=== PATIENT | female | born 1960 | race Caucasian/White ===

== ENCOUNTER 2018-06-30 18:47 | Emergency (ER) | payer OTHER ==
[2018-06-30] MEDS ORDERED: ONDANSETRON 4 MG TAB.RAPDIS PO ONE (20:26)
[2018-06-30] MEDS ORDERED: IPRATROPIUM/ALBUTEROL 0.5-2.5 MG/3 ML AMPUL NEB ONE (20:31)
--- NOTE | 2018-06-30 20:31 | ER Document Report ---
ED Medical Screen (RME) - General Chief Complaint: Diarrhea Stated Complaint: DIARRHEA, ABDOMINAL CRAMPS, UPSET STOMACH Time Seen by Provider: 06/30/18 20:18 Mode of Arrival: Ambulatory Information source: Patient Notes: 57-year-old female presents the emergency department with complaints of abdominal cramping and diarrhea for the last month. Patient states that she ate sushi on the and the diarrhea began. She's had continued diarrhea despite taking [id number] Imodium. She states that she is consuming Pedialyte to try to stay hydrated. Having associated nausea but denies vomiting. Denies fever, chills, dysuria, hematuria, increased urgency, increased frequency. Had her teeth pulled earlier this month and has been on antibiotics. I have greeted and performed a rapid initial assessment of this patient. A comprehensive ED assessment and evaluation of the patient, analysis of test results and completion of the medical decision making process will be conducted by additional ED providers. PHYSICAL EXAMINATION: GENERAL: Well-appearing, well-nourished and in no acute distress. HEAD: Atraumatic, normocephalic. EYES: Pupils equal round extraocular movements intact, conjunctiva are normal. ENT: Nares patent NECK: Normal range of motion LUNGS: Diffuse wheezing Musculoskeletal: Normal range of motion NEUROLOGICAL: Normal speech, normal gait. PSYCH: Normal mood, normal affect. SKIN: Warm, Dry, normal turgor, no rashes or lesions noted. TRAVEL OUTSIDE OF THE [place] IN LAST 30 DAYS: No - Related Data Allergies/Adverse Reactions: hydrocodone Allergy (Verified 06/30/18 20:13) Past Medical History - Social History Chew tobacco use (# tins/day): No Frequency of alcohol use: None Drug Abuse: None - Past Medical History Cardiac Medical History: Denies: Hx Coronary Artery Disease, Hx Heart Attack, Hx Hypertension Pulmonary Medical History: Reports: Hx Asthma, Hx COPD Denies: Hx Bronchitis, Hx Pneumonia Neurological Medical History: Denies: Hx Cerebrovascular Accident, Hx Seizures Renal/ Medical History: Denies: Hx Peritoneal Dialysis Musculoskeltal Medical History: Denies Hx Arthritis Traumatic Medical History: Reports: Hx Fractures - Multiple rib fractures. Right clavicle fracture. Past Surgical History: Reports: Hx Cholecystectomy, Hx Oral Surgery, Hx Thyroid Surgery. Denies: Hx Pacemaker - Immunizations Hx Diphtheria, Pertussis, Tetanus Vaccination: Yes - Jan 2010 Physical Exam - Vital signs Vitals: Temp Pulse Resp BP Pulse Ox 99.7 F 62 18 101/88 H 98 06/30/18 19:13 06/30/18 19:13 06/30/18 19:13 06/30/18 19:13 06/30/18 19:13 Course - Vital Signs Vital signs: Temp Pulse Resp BP Pulse Ox 99.7 F 62 18 101/88 H 98 06/30/18 19:13 06/30/18 19:13 06/30/18 19:13 06/30/18 19:13 06/30/18 19:13
[2018-06-30 21:06] LABS: ABSOLUTE BASOPHILS # (AUTO) 0.1 10^3/uL (0.0-0.2); ABSOLUTE EOSINOPHILS # (AUTO) 0.1 10^3/uL (0.0-0.6); ABSOLUTE LYMPHOCYTES (AUTO) 2.6 10^3/uL (0.5-4.7); ABSOLUTE MONOCYTES (AUTO) 0.6 10^3/uL (0.1-1.4); ABSOLUTE NEUT (AUTO) 5.8 10^3/uL (1.7-8.2); BASOPHILS % (AUTO) 0.9 % (0-2); EOSINOPHILS % (AUTO) 0.7 % (0-6); HEMATOCRIT 41.6 % (36.0-47.0); HEMOGLOBIN 13.7 g/dL (12.0-15.5); LYMPHOCYTES % (AUTO) 28.5 % (13-45); MEAN CORPUSCULAR HEMOGLOBIN 27.4 pg (27.0-33.4); MEAN CORPUSCULAR VOLUME 83 fl (80-97); MONOCYTES % (AUTO) 6.9 % (3-13); PLATELET COUNT 381 10^3/uL (150-450); RED CELL DISTRIBUTION WIDTH 13.2 % (11.5-14.0); TOTAL CELLS COUNTED % (AUTO) 100 %; WHITE BLOOD COUNT 9.2 10^3/uL (4.0-10.5)
[2018-06-30 21:11] LABS: APPEARANCE,URINE SLIGHTLY-CLOUDY; BILIRUBIN,URINE NEGATIVE (NEGATIVE); COLOR,URINE YELLOW; GLUCOSE, URINE NEGATIVE (NEGATIVE); KETONES,URINE TRACE mg/dL (NEGATIVE); LEUKOCYTE ESTERASE,URINE NEGATIVE (NEGATIVE); NITRITE,URINE NEGATIVE (NEGATIVE); PROTEIN,URINE NEGATIVE (NEGATIVE); URINE SPECIFIC GRAVITY 1.024
[2018-06-30 21:33] LABS: ALANINE AMINOTRANSFERASE 183 U/L (9-52); ALBUMIN 4.8 g/dL (3.5-5.0); ALKALINE PHOSPHATASE 77 U/L (38-126); ANION GAP 10 (5-19); ASPARTATE AMINO TRANSFERASE 145 U/L (14-36); BILIRUBIN,DIRECT 0.3 mg/dL (0.0-0.4); BILIRUBIN,TOTAL 0.6 mg/dL (0.2-1.3); BLOOD UREA NITROGEN 17 mg/dL (7-20); CALCIUM 9.8 mg/dL (8.4-10.2); CARBON DIOXIDE 30 mmol/L (22-30); CHLORIDE 102 mmol/L (98-107); GLUCOSE 104 mg/dL (75-110); POTASSIUM 3.8 mmol/L (3.6-5.0); SODIUM 141.7 mmol/L (137-145); TOTAL PROTEIN 7.5 g/dL (6.3-8.2)
--- NOTE | 2018-07-01 00:12 | ER Document Report ---
ED GI/ - General Chief Complaint: Diarrhea Stated Complaint: DIARRHEA, ABDOMINAL CRAMPS, UPSET STOMACH Time Seen by Provider: 06/30/18 20:18 Primary Care Provider: ASHLI SUNSHINE [Primary Care Provider] - Follow up as needed Mode of Arrival: Ambulatory Notes: 57-year-old female to emergency department chief complaint of diarrhea for 3 weeks. Patient states that she has been taking antibiotics for her teeth. Has been having diarrhea not getting better. Some intermittent abdominal cramping. Does not have a gallbladder. Does not drink. Does not do drugs. No IV drug abuse. No other risk factors other than the antibiotics. TRAVEL OUTSIDE OF THE [place] IN LAST 30 DAYS: No - HPI Patient complains to provider of: Diarrhea Onset: Last week Timing/Duration: Gradual, Constant Quality of pain: Achy Severity at maximum: Moderate - Related Data Allergies/Adverse Reactions: hydrocodone Allergy (Verified 06/30/18 20:13) Past Medical History - General Information source: Patient - Social History Smoking Status: Former Smoker Chew tobacco use (# tins/day): No Frequency of alcohol use: None Drug Abuse: None Lives with: Spouse/Significant other Family History: Reviewed & Not Pertinent Patient has suicidal ideation: No Patient has homicidal ideation: No - Past Medical History Cardiac Medical History: Denies: Hx Coronary Artery Disease, Hx Heart Attack, Hx Hypertension Pulmonary Medical History: Reports: Hx Asthma, Hx COPD Denies: Hx Bronchitis, Hx Pneumonia Neurological Medical History: Denies: Hx Cerebrovascular Accident, Hx Seizures Renal/ Medical History: Denies: Hx Peritoneal Dialysis Musculoskeletal Medical History: Denies Hx Arthritis Traumatic Medical History: Reports: Hx Fractures - Multiple rib fractures. Right clavicle fracture. Past Surgical History: Reports: Hx Cholecystectomy, Hx Oral Surgery, Hx Thyroid Surgery. Denies: Hx Pacemaker - Immunizations Hx Diphtheria, Pertussis, Tetanus Vaccination: Yes - Jan 2010 Review of Systems - Review of Systems Notes: Constitutional: denies: Chills, Diaphoresis, Fever, Malaise, Weakness EENT: denies: Eye discharge, Blurred vision, Tearing, Double vision, Nose congestion, Nose discharge, Throat swelling, Mouth pain Cardiovascular: denies: Palpitations, Heart racing, Orthopnea, Dyspnea, Chest pain Respiratory: denies: Cough, Hurts to breathe, Wheezing, Shortness of breath Gastrointestinal: Complaining of abdominal cramps, nausea, diarrhea. Genitourinary: denies: Burning, Dysuria, Discharge, Frequency, Flank pain, Hematuria Musculoskeletal: denies: Joint pain, Joint swelling, Muscle pain, Muscle stiffness, back pain Hematologic/Lymphatic: denies: Anemia, Easy bleeding, Easy bruising, Blood clots Neurological/Psychological: denies: Confusion, Dementia, Depression, Loss of consciousness Skin: No lesions, no masses, no skin breakdown, no abscesses Physical Exam - Vital signs Vitals: Temp Pulse Resp BP Pulse Ox 99.7 F 62 18 101/88 H 98 06/30/18 19:13 06/30/18 19:13 06/30/18 19:13 06/30/18 19:13 06/30/18 19:13 Interpretation: Normal - General General appearance: Appears well, Alert - HEENT Head: Normocephalic, Atraumatic Eyes: Normal Pupils: PERRL - Respiratory Respiratory status: No respiratory distress Chest status: Nontender Breath sounds: Normal Chest palpation: Normal - Cardiovascular Rhythm: Regular Heart sounds: Normal auscultation Murmur: No - Abdominal Inspection: Normal Distension: No distension Bowel sounds: Normal Tenderness: Nontender Organomegaly: No organomegaly - Back Back: Normal, Nontender - Extremities General upper extremity: Normal inspection, Nontender, Normal color, Normal ROM, Normal temperature General lower extremity: Normal inspection, Nontender, Normal color, Normal ROM, Normal temperature, Normal weight bearing. No: Ricki's sign - Neurological Neuro grossly intact: Yes Cognition: Normal Orientation: AAOx4 [place] Coma Scale Eye Opening: Spontaneous [place] Coma Scale Verbal: Oriented Michael Coma Scale Motor: Obeys Commands [place] Coma Scale Total: 15 Speech: Normal Motor strength normal: LUE, RUE, LLE, RLE Sensory: Normal - Psychological Associated symptoms: Normal affect, Normal mood - Skin Skin Temperature: Warm Skin Moisture: Dry Skin Color: Normal Course - Re-evaluation Re-evalutation: 07/01/18 01:43 Laboratory 06/30/18 06/30/18 06/30/18 20:45 20:45 20:45 WBC 9.2 RBC 5.00 Hgb 13.7 Hct 41.6 MCV 83 MCH 27.4 MCHC 33.0 RDW 13.2 Plt Count 381 Seg Neutrophils % 63.0 Lymphocytes % 28.5 Monocytes % 6.9 Eosinophils % 0.7 Basophils % 0.9 Absolute Neutrophils 5.8 Absolute Lymphocytes 2.6 Absolute Monocytes 0.6 Absolute Eosinophils 0.1 Absolute Basophils 0.1 Sodium 141.7 Potassium 3.8 Chloride 102 Carbon Dioxide 30 Anion Gap 10 BUN 17 Creatinine 0.67 Est GFR ( Amer) > 60 Est GFR (Non-Af Amer) > 60 Glucose 104 Calcium 9.8 Total Bilirubin 0.6 Direct Bilirubin 0.3 Neonat Total Bilirubin Not Reportable Neonat Direct Bilirubin Not Reportable Neonat Indirect Bili Not Reportable AST 145 H ALT 183 H Alkaline Phosphatase 77 Total Protein 7.5 Albumin 4.8 Lipase Urine Color YELLOW Urine Appearance SLIGHTLY-CLOUDY Urine pH 5.0 Ur Specific Harold 1.024 Urine Protein NEGATIVE Urine Glucose (UA) NEGATIVE Urine Ketones TRACE H Urine Blood NEGATIVE Urine Nitrite NEGATIVE Urine Bilirubin NEGATIVE Urine Urobilinogen 4.0 H Ur Leukocyte Esterase NEGATIVE Urine WBC (Auto) 1 Urine RBC (Auto) 0 U Hyaline Cast (Auto) 1 Squamous Epi Cells Auto 1 Urine Mucus (Auto) FEW Urine Ascorbic Acid 20 H C. difficile Tox (PCR) 06/30/18 06/30/18 20:45 23:30 WBC RBC Hgb Hct MCV MCH MCHC RDW Plt Count Seg Neutrophils % Lymphocytes % Monocytes % Eosinophils % Basophils % Absolute Neutrophils Absolute Lymphocytes Absolute Monocytes Absolute Eosinophils Absolute Basophils Sodium Potassium Chloride Carbon Dioxide Anion Gap BUN Creatinine Est GFR ( Amer) Est GFR (Non-Af Amer) Glucose Calcium Total Bilirubin Direct Bilirubin Neonat Total Bilirubin Neonat Direct Bilirubin Neonat Indirect Bili AST ALT Alkaline Phosphatase Total Protein Albumin Lipase 102.4 Urine Color Urine Appearance Urine pH Ur Specific Harold Urine Protein Urine Glucose (UA) Urine Ketones Urine Blood Urine Nitrite Urine Bilirubin Urine Urobilinogen Ur Leukocyte Esterase Urine WBC (Auto) Urine RBC (Auto) U Hyaline Cast (Auto) Squamous Epi Cells Auto Urine Mucus (Auto) Urine Ascorbic Acid C. difficile Tox (PCR) POSITIVE Mildly elevated liver function studies with a positive C. difficile. Hepatitis panel ordered. Starting on Flagyl. Currently patient is nontoxic-appearing. In no acute distress. No significant abdominal pain. Great candidate for outpatient treatment. Will DC at this time. 07/01/18 01:44 - Vital Signs Vital signs: Temp Pulse Resp BP Pulse Ox 98.5 F 65 16 149/78 H 100 06/30/18 23:05 06/30/18 23:05 06/30/18 23:05 06/30/18 23:05 06/30/18 23:05 - Laboratory Result Diagrams: 06/30/18 20:45 06/30/18 20:45 Laboratory results interpreted by me: 06/30/18 06/30/18 20:45 20:45 AST 145 H ALT 183 H Urine Ketones TRACE H Urine Urobilinogen 4.0 H Urine Ascorbic Acid 20 H Discharge - Discharge Clinical Impression: Clostridium difficile colitis Condition: Good Disposition: HOME, SELF-CARE Instructions: C. (Clostridium) Difficile Infection ([facility]) Prescriptions: Metronidazole [Flagyl 500 mg Tablet] 500 mg PO Q8H 10 Days #30 tablet Ondansetron [Zofran Odt 4 mg Tablet] 1 - 2 tab PO Q4H PRN #15 tab.rapdis PRN Reason: For Nausea/Vomiting Forms: Return to Work, Special Work Note [facility]errals: [facility] [Primary Care Provider] - Follow up in 3-5 days
[2018-07-01] MEDS ORDERED: METRONIDAZOLE 500 MG TABLET PO ONE (00:38)
[2018-07-01 02:18] VITALS: BP 126/68
[2018-07-02 07:41] LABS: HEPATITIS A AB IGM Negative (Negative); HEPATITIS B CORE AB IGM Negative (Negative); HEPATITS B SURFACE ANTIGEN Negative (Negative)
[2018-07-02 09:58] LABS: HEPATITIS C VIRUS ANTIBODY <0.1 s/co ratio (0.0-0.9)
== END 2018-07-01 02:18 | disposition home or self-care (01) ==
LOC: ER 18:47
DX: A04.72 Enterocolitis due to Clostridium difficile, not specified as recurrent (principal); R94.5 Abnormal results of liver function studies; R10.9 Unspecified abdominal pain; R11.0 Nausea; J44.9 Chronic obstructive pulmonary disease, unspecified; Z90.49 Acquired absence of other specified parts of digestive tract; Z88.5 Allergy status to narcotic agent; Z87.891 Personal history of nicotine dependence
CPT/HCPCS: 94640; 99284; 36415; 87045; 87205; 83690; 85025; 80053; 81001; 87493; 80074; S0119; J7620

== ENCOUNTER 2018-07-08 11:24 | Emergency (ER) | payer OTHER ==
[2018-07-08 11:50] VITALS: BP 149/72
[2018-07-08] MEDS ORDERED: ONDANSETRON HCL INJ/PF 4 MG/2 ML SDV IV ONE (13:24)
[2018-07-08] MEDS ORDERED: NORMAL SALINE 1000 ML 1,000 ML IV ONE (13:24)
--- NOTE | 2018-07-08 13:34 | ER Document Report ---
ED Medical Screen (RME) - General Chief Complaint: Constipation Stated Complaint: POSSIBLE CONSTIPATION Time Seen by Provider: 07/08/18 13:18 Primary Care Provider: ASHLI SUNSHINE [Primary Care Provider] - Follow up as needed Notes: 57-year-old female with a history of C. difficile who is on Flagyl presents the emergency department with complaints of nausea, vomiting, right flank pain. I have greeted and performed a rapid initial assessment of this patient. A comprehensive ED assessment and evaluation of the patient, analysis of test results and completion of the medical decision making process will be conducted by additional ED providers. PHYSICAL EXAMINATION: GENERAL: Well-appearing, well-nourished and in no acute distress. HEAD: Atraumatic, normocephalic. EYES: Pupils equal round extraocular movements intact, conjunctiva are normal. ENT: Nares patent NECK: Normal range of motion LUNGS: No respiratory distress Musculoskeletal: Normal range of motion NEUROLOGICAL: Normal speech, normal gait. PSYCH: Normal mood, normal affect. SKIN: Warm, Dry, normal turgor, no rashes or lesions noted. TRAVEL OUTSIDE OF THE [place] IN LAST 30 DAYS: No - Related Data Allergies/Adverse Reactions: hydrocodone Allergy (Verified 07/08/18 11:35) Past Medical History - Social History Chew tobacco use (# tins/day): No Frequency of alcohol use: None Drug Abuse: None - Past Medical History Cardiac Medical History: Denies: Hx Coronary Artery Disease, Hx Heart Attack, Hx Hypertension Pulmonary Medical History: Reports: Hx Asthma, Hx COPD Denies: Hx Bronchitis, Hx Pneumonia Neurological Medical History: Denies: Hx Cerebrovascular Accident, Hx Seizures Renal/ Medical History: Denies: Hx Peritoneal Dialysis Musculoskeltal Medical History: Denies Hx Arthritis Traumatic Medical History: Reports: Hx Fractures - Multiple rib fractures. Right clavicle fracture. Past Surgical History: Reports: Hx Breast Surgery - IMPLANTS, Hx Cholecystectomy, Hx Gynecologic Surgery - D&C X 5, Hx Oral Surgery, Hx Orthopedic Surgery - BACK, Hx Thyroid Surgery, Hx Tubal Ligation. Denies: Hx Pacemaker - Immunizations Hx Diphtheria, Pertussis, Tetanus Vaccination: Yes - Jan 2010 Physical Exam - Vital signs Vitals: Temp Pulse Resp BP Pulse Ox 98.2 F 85 16 149/72 H 100 07/08/18 11:46 07/08/18 11:46 07/08/18 11:46 07/08/18 11:46 07/08/18 11:46 Course - Vital Signs Vital signs: Temp Pulse Resp BP Pulse Ox 98.2 F 85 16 149/72 H 100 07/08/18 11:46 07/08/18 11:46 07/08/18 11:46 07/08/18 11:46 07/08/18 11:46 Doctor's Discharge - Discharge Referrals: [facility] [Primary [facility]] - Follow up as needed
[2018-07-08 14:55] LABS: ABSOLUTE BASOPHILS # (AUTO) 0.1 10^3/uL (0.0-0.2); ABSOLUTE EOSINOPHILS # (AUTO) 0.2 10^3/uL (0.0-0.6); ABSOLUTE LYMPHOCYTES (AUTO) 2.6 10^3/uL (0.5-4.7); ABSOLUTE MONOCYTES (AUTO) 0.6 10^3/uL (0.1-1.4); ABSOLUTE NEUT (AUTO) 4.9 10^3/uL (1.7-8.2); BASOPHILS % (AUTO) 0.7 % (0-2); EOSINOPHILS % (AUTO) 1.9 % (0-6); HEMATOCRIT 41.4 % (36.0-47.0); HEMOGLOBIN 13.7 g/dL (12.0-15.5); LYMPHOCYTES % (AUTO) 31.4 % (13-45); MEAN CORPUSCULAR HEMOGLOBIN 27.7 pg (27.0-33.4); MEAN CORPUSCULAR HGB CONC 33.1 g/dL (32.0-36.0); MEAN CORPUSCULAR VOLUME 84 fl (80-97); MONOCYTES % (AUTO) 6.8 % (3-13); PLATELET COUNT 346 10^3/uL (150-450); RED BLOOD COUNT 4.94 10^6/uL (3.72-5.28); RED CELL DISTRIBUTION WIDTH 14.1 % (11.5-14.0); SEGMENTED NEUTROPHILS % (AUTO) 59.2 % (42-78); TOTAL CELLS COUNTED % (AUTO) 100 %; WHITE BLOOD COUNT 8.3 10^3/uL (4.0-10.5)
[2018-07-08 15:12] LABS: ALANINE AMINOTRANSFERASE 38 U/L (9-52); ALBUMIN 4.7 g/dL (3.5-5.0); ALKALINE PHOSPHATASE 69 U/L (38-126); ANION GAP 12 (5-19); ASPARTATE AMINO TRANSFERASE 25 U/L (14-36); BILIRUBIN,DIRECT 0.2 mg/dL (0.0-0.4); BILIRUBIN,TOTAL 0.5 mg/dL (0.2-1.3); BLOOD UREA NITROGEN 12 mg/dL (7-20); CALCIUM 9.8 mg/dL (8.4-10.2); CARBON DIOXIDE 26 mmol/L (22-30); CHLORIDE 105 mmol/L (98-107); GLUCOSE 116 mg/dL (75-110); POTASSIUM 4.2 mmol/L (3.6-5.0); SODIUM 142.9 mmol/L (137-145); TOTAL PROTEIN 7.1 g/dL (6.3-8.2)
[2018-07-08 15:53] LABS: APPEARANCE,URINE SLIGHTLY-CLOUDY; BILIRUBIN,URINE NEGATIVE (NEGATIVE); CALCIUM OXALATE CRYSTALS,URINE FEW /HPF; COLOR,URINE AMBER; GLUCOSE, URINE NEGATIVE (NEGATIVE); KETONES,URINE NEGATIVE (NEGATIVE); LEUKOCYTE ESTERASE,URINE MODERATE (NEGATIVE); NITRITE,URINE NEGATIVE (NEGATIVE); PROTEIN,URINE NEGATIVE (NEGATIVE); URINE SPECIFIC GRAVITY 1.025
--- NOTE | 2018-07-08 16:53 | RADIOLOGY REPORT (SQ) ---
EXAM DESCRIPTION: CT ABD/PELVIS WITH IV ONLY COMPLETED DATE/TIME: 07/08/2018 4:37 pm REASON FOR STUDY: R sided flank and abdominal pain COMPARISON: None. TECHNIQUE: CT scan of the abdomen and pelvis performed using helical scanning technique with dynamic intravenous contrast injection. No oral contrast. Images reviewed with lung, soft tissue, and bone windows. Reconstructed coronal and sagittal MPR images reviewed. Delayed images for evaluation of the urinary system also acquired. All images stored on PACS. All CT scanners at this facility use dose modulation, iterative reconstruction, and/or weight based d osing when appropriate to reduce radiation dose to as low as reasonably achievable (ALARA). [facility]: Dose Right [facility]: CareDose [facility]: Dose Right [facility]: Teradose 4D [facility]: [facility] CONTRAST TYPE AND DOSE: contrast/concentration: Isovue 350.00 mg/ml; Total Contrast Delivered: 80.0 ml; Total Saline Delivered: 68.0 ml RENAL FUNCTION: GFR > 60. RADIATION DOSE: CT Rad equipment meets quality standard of care and radiation dose reduction techniq ues were employed. CTDIvol: 7.2 - 10.1 mGy. DLP: 865 mGy-cm.. LIMITATIONS: None. FINDINGS: LOWER CHEST: No significant findings. No nodules or infiltrates. LIVER: Subcentimeter low-density lesion right lobe too small to characterize. SPLEEN: Normal size. No focal lesions. PANCREAS: No masses. No significant calcifications. No adjacent inflammation or peripancreatic fluid collections. Pancreatic duct not dilated. GALLBLADDER: Surgically absent. ADRENAL GLANDS: No significant masses or asymmetry. RIGHT KIDNEY AND URETER: No solid masses. No significant calcifications. No hydronephrosis or hyd roureter. LEFT KIDNEY AND URETER: No solid masses. No significant calcifications. No hydronephrosis or hydr oureter. AORTA AND VESSELS: No aneurysm. No dissection. Renal arteries, SMA, celiac without stenosis. RETROPERITONEUM: No retroperitoneal adenopathy, hemorrhage or masses. BOWEL AND PERITONEAL CAVITY: No masses or inflammatory changes. No free fluid or peritoneal masses. APPENDIX: Normal. PELVIS: Calcified uterine fibroid. Normal urinary bladder. Pelvic phleboliths. ABDOMINAL WALL: No masses. No hernias. BONES: Nothing acute. OTHER: No other significant finding. IMPRESSION: No acute findings. TECHNICAL DOCUMENTATION: JOB ID: [id number] Quality ID # [id number]: Final reports with documentation of one or more dose reduction techniques (e.g., Au tomated exposure control, adjustment of the mA and/or kV according to patient size, use of iterative reconstruction technique) 2010 [employer]- All Rights Reserved Reading location - IP/workstation name: [email or web address]
[2018-07-08] MEDS ORDERED: METOCLOPRAMIDE HCL INJ/PF 10 MG/2 ML SDV IV ONE (20:30)
[2018-07-08] MEDS ORDERED: VANCOMYCIN HCL INJ 500 MG VIAL PO ONE (20:32)
--- NOTE | 2018-07-08 20:36 | ER Document Report ---
ED General - General Chief Complaint: Constipation Stated Complaint: POSSIBLE CONSTIPATION Time Seen by Provider: 07/08/18 13:18 Primary Care Provider: ASHLI SUNSHINE [Primary Care Provider] - Follow up tomorrow Notes: Patient is a 57-year-old female with past medical history of COPD, currently being treated for Clostridium difficile colitis who presents with complaints of bilateral flank pain, generalized abdominal cramping as well as nausea and vomiting. Patient states that she had been improving after several days on metronidazole that has begun to get worse over the last 48 hours. Pain is described as a cramping, aching pain. Nothing improves or worsens that pain. She is being followed by her primary care doctor through the [place]. Has not yet followed up since worsening of her symptoms. Has not had fever. Notes that she is able to tolerate fluids without difficulty. Denies a history of similar symptoms in the past. Denies melena or hematochezia. Continues to have loose bowel movements. TRAVEL OUTSIDE OF THE [place] IN LAST 30 DAYS: No - Related Data Allergies/Adverse Reactions: hydrocodone Allergy (Verified 07/08/18 11:35) Past Medical History - General Information source: Patient - Social History Smoking Status: Former Smoker Chew tobacco use (# tins/day): No Frequency of alcohol use: None Drug Abuse: None Family History: Reviewed & Not Pertinent Patient has suicidal ideation: No Patient has homicidal ideation: No - Past Medical History Cardiac Medical History: Denies: Hx Coronary Artery Disease, Hx Heart Attack, Hx Hypertension Pulmonary Medical History: Reports: Hx Asthma, Hx COPD Denies: Hx Bronchitis, Hx Pneumonia Neurological Medical History: Denies: Hx Cerebrovascular Accident, Hx Seizures Renal/ Medical History: Denies: Hx Peritoneal Dialysis Musculoskeletal Medical History: Denies Hx Arthritis Traumatic Medical History: Reports: Hx Fractures - Multiple rib fractures. Right clavicle fracture. Past Surgical History: Reports: Hx Breast Surgery - IMPLANTS, Hx Cholecystectomy, Hx Gynecologic Surgery - D&C X 5, Hx Oral Surgery, Hx Orthopedic Surgery - BACK, Hx Thyroid Surgery, Hx Tubal Ligation. Denies: Hx Pacemaker - Immunizations Hx Diphtheria, Pertussis, Tetanus Vaccination: Yes - Jan 2010 Review of Systems - Review of Systems Notes: Constitutional: Negative for fever. HENT: Negative for sore throat. Eyes: Negative for visual changes. Cardiovascular: Negative for chest pain. Respiratory: Negative for shortness of breath. Gastrointestinal: Positive for abdominal cramping, vomiting and diarrhea Genitourinary: Negative for dysuria. Musculoskeletal: Negative for back pain. Skin: Negative for rash. Neurological: Negative for headaches, weakness or numbness. 10 point ROS negative except as marked above and in HPI. Physical Exam - Vital signs Vitals: Temp Pulse Resp BP Pulse Ox 98.2 F 85 16 149/72 H 100 07/08/18 11:46 07/08/18 11:46 07/08/18 11:46 07/08/18 11:46 07/08/18 11:46 Interpretation: Hypertensive Notes: PHYSICAL EXAMINATION: GENERAL: Well-appearing, well-nourished and in no acute distress. HEAD: Atraumatic, normocephalic. EYES: Pupils equal round and reactive to light, extraocular movements intact, sclera anicteric, conjunctiva are normal. ENT: nares patent, oropharynx clear without exudates. Mild dry mucous membranes. NECK: Normal range of motion, supple without lymphadenopathy LUNGS: Breath sounds clear to auscultation bilaterally and equal. No wheezes rales or rhonchi. HEART: Regular rate and rhythm without murmurs ABDOMEN: Soft, nontender, normoactive bowel sounds. No guarding, no rebound. No masses appreciated. EXTREMITIES: Normal range of motion, no pitting or edema. No cyanosis. NEUROLOGICAL: No focal neurological deficits. Moves all extremities spontaneously and on command. PSYCH: Normal mood, normal affect. SKIN: Warm, Dry, normal turgor, no rashes or lesions noted. Course - Re-evaluation Re-evalutation: 07/08/18 20:34 Presentation of an overall well-appearing 57-year-old female, previously diagnosed with C. difficile colitis with ongoing diarrhea, nausea, vomiting and generalized abdominal pain most localized to the right flank. She was referred for concern of possible small bowel obstruction. CT scan of the abdomen pelvis without any evidence of bowel obstruction or alternative pathology. Labs completely unremarkable. Abdominal exam is benign without any areas of focal rebound, guarding or colitis tenderness. Vitals within normal limits. Patient has been able to tolerate oral fluids without difficulty. Suspect C. difficile treatment failure using Flagyl. Patient has been transitioned to oral vancomycin. First dose given here in the emergency department. Based on exam, CT, labs I do not clinically suspect acute nephrolithiasis, pyelonephritis, appendicitis, biliary pathology, bowel obstruction, or mesenteric ischemia. At this time will discharge with return precautions and follow-up recommendations. Verbal discharge instructions given a the bedside and opportunity for questions given. Medication warnings reviewed. Patient is in agreement with this plan and has verbalized understanding of return precautions and the need for primary care follow-up tomorrow. - Vital Signs Vital signs: Temp Pulse Resp BP Pulse Ox 98.2 F 85 16 149/72 H 100 07/08/18 11:46 07/08/18 11:46 07/08/18 11:46 07/08/18 11:46 07/08/18 11:46 - Laboratory Result Diagrams: 07/08/18 14:16 07/08/18 14:16 Laboratory results interpreted by me: 07/08/18 07/08/18 07/08/18 14:16 14:16 15:11 RDW 14.1 H Glucose 116 H Urine Urobilinogen 2.0 H Ur Leukocyte Esterase MODERATE H Urine Ascorbic Acid 40 H - Diagnostic Test Radiology reviewed: Reports reviewed Discharge - Discharge Clinical Impression: Clostridium difficile colitis Abdominal pain Qualifiers: Abdominal location: generalized Qualified Code(s): R10.84 - Generalized abdominal pain Nausea and vomiting Qualifiers: Vomiting type: unspecified Vomiting Intractability: non-intractable Qualified Code(s): R11.2 - Nausea with vomiting, unspecified Condition: Good Disposition: HOME, SELF-CARE Additional Instructions: Your symptoms are likely coming from your C. difficile not being adequately treated using Flagyl. You have been transitioned to oral vancomycin. Your labs , CT scan and exam are otherwise reassuring. Please begin taking the vancomycin tomorrow as prescribed. Return to the emergency permit immediately if you become unable to tolerate fluids, have worsening pain, develop a fever of greater than 100.4 F, have blood in your stool or vomitus, or have any other symptoms that are worrisome to you. Please follow-up with your primary care physician within the next 24-48 hours. Prescriptions: Vancomycin HCl [Vancocin HCl] 125 mg PO Q6H #40 capsule Forms: Return to Work Referrals: [facility] [Primary [facility]] - Follow up tomorrow
== END 2018-07-08 21:20 | disposition home or self-care (01) ==
LOC: ER 11:24
DX: A04.72 Enterocolitis due to Clostridium difficile, not specified as recurrent (principal); R10.84 Generalized abdominal pain; R11.2 Nausea with vomiting, unspecified
CPT/HCPCS: 99284; 96361; 96374; 96375; 36415; 85025; 80053; 81001; 74177; J2765; J2405; J3370; J7030

== ENCOUNTER 2019-11-02 13:52 | Emergency (ER) | payer OTHER ==
[2019-11-02] MEDS ORDERED: TETRACAINE HCL 0.5% OPH SOLN 4 ML OS ONE (14:35)
--- NOTE | 2019-11-02 14:39 | ER Document Report ---
ED Medical Screen (RME) - General Chief Complaint: Eye Pain Stated Complaint: LEFT EYE IRRITATION, PAIN, REDNESS Time Seen by Provider: 11/02/19 14:30 Primary Care Provider: [facility] [Primary Care Provider] - Follow up as needed Mode of Arrival: Ambulatory Information source: Patient Notes: HPI; 59-year-old female past medical history significant for COPD and ADHD presents to the emergency room complaining of left eye pain that started yesterday. Using [id number] eyedrops for dry eye without relief. Denies any trauma or injury. Complains of tearing today painful to open her eye. Wears glasses but no contacts. PE: Alert and oriented x3. No distress noted. Unable to open left eye to be examined. Lungs are clear to auscultation without rales rhonchi or wheezes. Heart regular rate and rhythm without murmurs rubs or gallops. I have greeted and performed a rapid initial assessment of this patient. A comprehensive ED assessment and evaluation of the patient, analysis of test results and completion of the medical decision making process will be conducted by additional ED providers. I have specifically instructed the patient or family members with the patient to immediately return to any nursing staff should anything change in the patient's condition or with their chief complaint. TRAVEL OUTSIDE OF THE [place] IN LAST 30 DAYS: No - Related Data Allergies/Adverse Reactions: codeine Allergy (Verified 11/02/19 14:27) hydrocodone Allergy (Verified 11/02/19 14:26) Home Medications: Zoloft Welbutrin Adderall Past Medical History - Social History Chew tobacco use (# tins/day): No Frequency of alcohol use: Rare Drug Abuse: None - Past Medical History Cardiac Medical History: Denies: Hx Coronary Artery Disease, Hx Heart Attack, Hx Hypertension Pulmonary Medical History: Reports: Hx Asthma, Hx COPD Denies: Hx Bronchitis, Hx Pneumonia Neurological Medical History: Denies: Hx Cerebrovascular Accident, Hx Seizures Renal/ Medical History: Denies: Hx Peritoneal Dialysis Musculoskeltal Medical History: Denies Hx Arthritis Traumatic Medical History: Reports: Hx Fractures - Multiple rib fractures. Right clavicle fracture. Past Surgical History: Reports: Hx Breast Surgery - IMPLANTS, Hx Cholecystectomy, Hx Gynecologic Surgery - D&C X 5, Hx Oral Surgery, Hx Orthopedic Surgery - BACK, Hx Thyroid Surgery, Hx Tubal Ligation. Denies: Hx Pacemaker - Immunizations Hx Diphtheria, Pertussis, Tetanus Vaccination: Yes - Jan 2010 Physical Exam - Vital signs Vitals: Temp Pulse Resp BP Pulse Ox 98.1 F 84 19 132/83 H 95 11/02/19 13:56 11/02/19 13:56 11/02/19 13:56 11/02/19 13:56 11/02/19 13:56 Course - Vital Signs Vital signs: Temp Pulse Resp BP Pulse Ox 98.1 F 84 19 132/83 H 95 11/02/19 14:27 11/02/19 13:56 11/02/19 13:56 11/02/19 13:56 11/02/19 13:56 Doctor's Discharge - Discharge Referrals: [facility] [Primary Care Provider] - Follow up as needed
--- NOTE | 2019-11-02 17:22 | ER Document Report ---
ED Eye Complaint - General Chief Complaint: Eye Pain Stated Complaint: LEFT EYE IRRITATION, PAIN, REDNESS Time Seen by Provider: 11/02/19 14:30 Primary Care Provider: [facility] [Provider Group] - Follow up tomorrow Mode of Arrival: Ambulatory Information source: Patient Notes: Patient presents complaining of left eye pain that started yesterday. Patient r eports light sensitivity. Patient does wear glasses but denies any use of contact lenses. Patient denies any known trauma to the eye. Patient denies any change in her vision. Patient does report a history of dry eye for which she has rewetting drops. TRAVEL OUTSIDE OF THE [place] IN LAST 30 DAYS: No - HPI Onset: Yesterday Eye location: Left Injury: No Quality of pain: Burning Pain Level: 3 Contact lenses worn: No Associated symptoms: Pain, Photophobia. denies: Redness, Matting, Blurred vision, Double vision - Related Data Allergies/Adverse Reactions: codeine Allergy (Verified 11/02/19 14:27) hydrocodone Allergy (Verified 11/02/19 14:26) Home Medications: Zoloft Welbutrin Adderall Past Medical History - General Information source: Patient - Social History Smoking Status: Former Smoker Chew tobacco use (# tins/day): No Frequency of alcohol use: Rare Drug Abuse: None Occupation: None Family History: Reviewed & Not Pertinent Patient has homicidal ideation: No - Past Medical History Cardiac Medical History: Denies: Hx Coronary Artery Disease, Hx Heart Attack, Hx Hypertension Pulmonary Medical History: Reports: Hx Asthma, Hx COPD Denies: Hx Bronchitis, Hx Pneumonia Neurological Medical History: Denies: Hx Cerebrovascular Accident, Hx Seizures Renal/ Medical History: Denies: Hx Peritoneal Dialysis Musculoskeletal Medical History: Denies Hx Arthritis Traumatic Medical History: Reports: Hx Fractures - Multiple rib fractures. Right clavicle fracture. Past Surgical History: Reports: Hx Breast Surgery - IMPLANTS, Hx Cholecystectomy, Hx Gynecologic Surgery - D&C X 5, Hx Oral Surgery, Hx Orthopedic Surgery - leg kelsi, clavicle plates, Hx Thyroid Surgery, Hx Tubal Ligation. Denies: Hx Pacemaker - Immunizations Hx Diphtheria, Pertussis, Tetanus Vaccination: Yes - Jan 2010 Review of Systems - Review of Systems Constitutional: No symptoms reported. denies: Fever EENT: Eye pain, Tearing. denies: Blurred vision, Double vision Cardiovascular: No symptoms reported Respiratory: No symptoms reported Gastrointestinal: No symptoms reported. denies: Vomiting Genitourinary: No symptoms reported Female Genitourinary: No symptoms reported Musculoskeletal: No symptoms reported Skin: No symptoms reported Hematologic/Lymphatic: No symptoms reported Neurological/Psychological: No symptoms reported Physical Exam - Vital signs Vitals: Temp Pulse Resp BP Pulse Ox 98.1 F 84 19 132/83 H 95 11/02/19 13:56 11/02/19 13:56 11/02/19 13:56 11/02/19 13:56 11/02/19 13:56 - General General appearance: Appears well, Alert In distress: None - HEENT Eyes: Other - entropion of L lower lid Conjunctiva: Normal Cornea: Corneal abrasion, Flourescein stain uptake. No: Corneal ulcer, Dendrite, Embedded foreign body, Opacified, Superficial foreign body - Respiratory Respiratory status: No respiratory distress Chest status: Nontender Breath sounds: Normal - Cardiovascular Rhythm: Regular Heart sounds: S1 appreciated, S2 appreciated - Back Back: Normal - Extremities General upper extremity: Normal inspection, Normal strength General lower extremity: Normal inspection, Normal strength - Neurological Neuro grossly intact: Yes Cognition: Normal [place] Coma Scale Eye Opening: Spontaneous [place] Coma Scale Verbal: Oriented Michael Coma Scale Motor: Obeys Commands [place] Coma Scale Total: 15 - Psychological Associated symptoms: Normal affect, Normal mood - Skin Skin Temperature: Warm Skin Moisture: Dry Skin Color: Normal Course - Re-evaluation Re-evalutation: 11/02/19 18:19 Patient with entropion to the left lower lid, suspect this is the culprit for patient's corneal abrasion. Patient does have diagnosis of dry eye as well. Patient encouraged to follow-up with package handler for recheck. - Vital Signs Vital signs: Temp Pulse Resp BP Pulse Ox 98.0 F 72 18 129/76 H 98 11/02/19 18:31 11/02/19 18:31 11/02/19 18:31 11/02/19 18:31 11/02/19 18:31 Procedures - Eye Procedure Left Fluorescein applied: Left Slit lamp used: No Notes: 11/02/19 18:18 entropin noted left eye lower lid, no entropion noted to the right eye Eyes picture: 1 - corneal abrasion Discharge - Discharge Clinical Impression: Entropion eyelid Qualifiers: Laterality: left Qualified Code(s): H02.006 - Unspecified entropion of left eye, unspecified eyelid Cornea abrasion Qualifiers: Encounter type: initial encounter Laterality: left Qualified Code(s): S05.02XA - Injury of conjunctiva and corneal abrasion without foreign body, left eye, initial encounter Condition: Stable Disposition: HOME, SELF-CARE Instructions: Antibiotic Therapy ([facility]), Corneal Abrasion ([facility]) Additional Instructions: Return immediately for any new or worsening symptoms Followup with your primary care provider, call tomorrow to make a followup appo intment Follow-up with package handler, call tomorrow to make a follow-up appointment Prescriptions: Erythromycin Base [E-Mycin 0.5% Oph Ointment 3.5 gm] 1 applic OS QID #1 tube Referrals: [facility] [Provider Group] - Follow up tomorrow
[2019-11-02] MEDS ORDERED: ERYTHROMYCIN 0.5% OPH OINTMENT 3.5 GM (ER DISP) OS PRN (18:22)
[2019-11-02 18:32] VITALS: BP 129/76
== END 2019-11-02 18:31 | disposition home or self-care (01) ==
LOC: ER 13:52
DX: S05.02XA Injury of conjunctiva and corneal abrasion without foreign body, left eye, initial encounter (principal); X58.XXXA Exposure to other specified factors, initial encounter; H02.005 Unspecified entropion of left lower eyelid; Z88.6 Allergy status to analgesic agent; Z88.5 Allergy status to narcotic agent; J44.9 Chronic obstructive pulmonary disease, unspecified; H04.129 Dry eye syndrome of unspecified lacrimal gland; Z79.899 Other long term (current) drug therapy; Z87.891 Personal history of nicotine dependence
CPT/HCPCS: 99283; J3490